=== PATIENT | female | born 1950 | race Caucasian/White ===

== ENCOUNTER 2022-03-26 03:54 | Emergency (ER) | payer MEDICARE, OTHER ==
[~2022-03-26 03:54] MED LIST: ASPIRIN81 MG PO; CRESTOR20 MG PO; EFFEXOR XR150 MG PO; ELAVIL 25 MG TA25 MG PO; FLEXERIL 10 MG10 MG PO; GLUCOPHAGE 500500 MG PO; HYDROXYZINE HCL25 MG PO; LANTUS100 UNIT/1 SQ; PERCOCET 5/325 T1 EA PO
[2022-03-26 05:36] LABS: HEMOGLOBIN 9.6 gm/dl (12.3-15.3); RED BLOOD COUNT 3.09 M/UL (4.00-5.10); WHITE BLOOD COUNT 7.8 K/UL (4.5-11.0)
== END 2022-03-26 11:50 | disposition home or self-care (01) ==
LOC: ER1 03:54
PROVIDERS: Student in an Organized Health Care Education/Training Program
DX: I95.1 Orthostatic hypotension (principal); R51.9 Headache, unspecified; E11.9 Type 2 diabetes mellitus without complications; Z20.822 Contact with and (suspected) exposure to COVID-19; Z88.2 Allergy status to sulfonamides; W19.XXXA Unspecified fall, initial encounter
CPT/HCPCS: 70450; 71045; 80053; 81001; 82550; 82553; 83605; 84484; 85025; 87040; 87086; 93005; 99284; J1650; U0002